=== PATIENT | male | born 1990 | race Caucasian/White ===

== ENCOUNTER 2016-08-01 15:43 | Emergency (ER) | payer SELFPAY ==
[~2016-08-01 15:43] MED LIST: AMOXIL500 M1 PO; AUGMENTIN PO; BENADRYL PO; DOXYCYCLINE HY100 M1 PO; FLONASE16 GM; KETOPROFEN PO; NAPROXEN PO; PERCOCET5/325 PO; PHENERGAN PO; PHENERGAN25 M1 PO; PREDNISONE PO; VOLTAREN75 MG PO; ZANTAC PO; ZITHROMAX PO; [UNRECOGNIZED DRUG - OTHER]
== END 2016-08-01 16:03 | disposition home or self-care (01) ==
LOC: CFTX 15:43
DX: H16.133 Photokeratitis, bilateral (principal); F17.210 Nicotine dependence, cigarettes, uncomplicated; W89.8XXA Exposure to other man-made visible and ultraviolet light, initial encounter
CPT/HCPCS: 99283

== ENCOUNTER 2016-10-30 22:43 | Emergency (ER) | payer SELFPAY ==
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
== END 2016-10-31 02:07 | disposition home or self-care (01) ==
LOC: SED 22:43
DX: S92.021A Displaced fracture of anterior process of right calcaneus, initial encounter for closed fracture (principal); F17.210 Nicotine dependence, cigarettes, uncomplicated; V43.62XA Car passenger injured in collision with other type car in traffic accident, initial encounter; Y92.410 Unspecified street and highway as the place of occurrence of the external cause
CPT/HCPCS: 29515; 73562; 73610; 73630; 99283; 99284

== ENCOUNTER 2017-01-16 19:08 | Emergency (ER) | payer OTHER ==
[~2017-01-16] VITALS: Ht 177.8 cm; Wt 77.1 kg
== END 2017-01-16 21:10 | disposition left against medical advice (07) ==
LOC: CED 19:08
DX: Z53.21 Procedure and treatment not carried out due to patient leaving prior to being seen by health care provider (principal)

== ENCOUNTER 2017-01-16 20:50 | Emergency (ER) | payer OTHER ==
[~2017-01-16] VITALS: Ht 177.8 cm; Wt 77.1 kg
[2017-01-16 22:22] LABS: BASOPHIL% 0.3 % (0-2.5); DIFF IND NO; EOSINOPHIL# 0.1 X10e3 (0-0.7); EOSINOPHIL% 0.6 % (0.0-7.0); HEMATOCRIT 36.3 % (38.0-50.0); HEMOGLOBIN 12.3 gm/dL (13.0-16.0); LYMPHOCYTE# 1.9 X10e3 (1.0-3.5); LYMPHOCYTE% 17.7 % (17.0-45.0); MEAN CELL VOLUME 84.6 FL (83-96); MEAN CORPUSCULAR HEMOGLOBIN 28.7 PG (28-34); MEAN CORPUSCULAR HGB CONC 33.9 g/dL (30-36); MEAN PLATELET VOLUME 8.3 FL (6.5-11.5); MONOCYTE% 9.8 % (3.0-12.0); NEUTROPHIL# 7.7 X10e3 (1.5-7.1); NEUTROPHIL% 71.6 % (40-75); PLATELET COUNT 238 X10e3 (140-420); RED BLOOD COUNT 4.29 X10e (3.90-5.60); RED CELL DISTRIBUTION WIDTH 14.6 % (11.0-15.5); WHITE BLOOD COUNT 10.7 X10e3 (4.0-10.5)
[2017-01-16 22:34] LABS: ALBUMIN SERUM 4.1 g/dL (3.5-5.0); BILIRUBIN,TOTAL 0.6 mg/dL (0.2-2.0); BUN/CREATININE RATIO 12.5; CALCIUM SERUM 8.9 mg/dL (8.4-10.2); CREATININE SERUM 0.8 mg/dL (0.6-1.4); GLOM FILT RATE Estimated 123.3 mL/min (>60); PROTEIN TOTAL SERUM 7.3 g/dL (6.0-8.3)
== END 2017-01-16 23:04 | disposition home or self-care (01) ==
LOC: SED 20:50
PROVIDERS: Nurse Practitioner Family
DX: L02.414 Cutaneous abscess of left upper limb (principal); L03.114 Cellulitis of left upper limb; Z90.49 Acquired absence of other specified parts of digestive tract; Z98.890 Other specified postprocedural states
CPT/HCPCS: 36415; 80053; 85025; 87070; 87205; 96365; 96375; 99283; J1885